=== PATIENT | female | born 1980 | race Caucasian/White ===

== ENCOUNTER 2022-06-17 13:32 | Outpatient (CLI) | payer MEDICAID | END 2022-06-17 23:59 | disposition critical access hospital (66) | LOC: EMS 13:32 | DX: R40.4 Transient alteration of awareness (principal); R40.0 Somnolence; R26.81 Unsteadiness on feet | CPT/HCPCS: A0425; A0427; A0999 ==

== ENCOUNTER 2022-06-17 13:53 | Emergency (ER) | payer MEDICAID ==
[2022-06-17] MEDS ORDERED: NALOXONE 0.4 MG/ML VIAL IVP STA (13:59)
--- NOTE | 2022-06-17 14:01 | ED Physician Documentation ---
History of Present Illness - Stated complaint Stated Complaint: AMS - History obtained from History obtained from: Patient, EMS - Additonal information Additional information: 41-year-old woman brought in from detox. Reportedly was admitted early yesterday. Today after 9 AM she became obtunded and passed out several times. Was not given anything sedating per the MAR today, she did have some meds last night. Reportedly there was no body cavity search on the way into detox. Patient has no complaints other than not wanting to be examined or be cooperative. When asked why she is obtunded, she says because I am coming down. Shortly after arrival here the detox center called us and passed along that while doing a room search, they found needles and drug pills in this patient's room and therefore the presumption is that she overdosed 12 the detox center. After discharge here she is not welcome back, but she can go there to get her stuff. I would presume they will not give the drugs back. PD PAST MEDICAL HISTORY - Past Medical History Cardiovascular: None Respiratory: None Neuro: None Endocrine/Autoimmune: None Psych: Other - Past Surgical History Past Surgical History: No - Allergies Allergies/Adverse Reactions: Allergies Allergy/AdvReac Type Severity Reaction Status Date / Time No Known Drug Allergies Allergy Verified 06/17/22 14:02 - Social History Does the pt smoke?: Yes Smoking Status: Never smoker Does the pt drink ETOH?: No Does the pt have substance abuse?: Yes - Immunizations Immunizations are current?: Yes - POLST Patient has POLST: No PD ED PE NORMAL - Vitals Vital signs reviewed: Yes - General General: Other (Somnolent but arousable) - HEENT HEENT: Other (Refuses to open eyes) - Cardiac Cardiac: RRR, No murmur - Respiratory Respiratory: No respiratory distress, Clear bilaterally - Abdomen Abdomen: Non tender - Neuro Eye Opening: To Voice Motor: Obeys Commands Verbal: Confused GCS Score: 13 Results - Vitals Vitals: Vital Signs - 24 hr 06/17/22 06/17/22 13:59 14:06 Temperature 37.1 C Heart Rate 81 76 Respiratory 17 18 Rate Blood Pressure 132/102 H 122/87 H O2 Saturation 98 96 Oxygen O2 Source Room air - EKG (time done) 1422 EKG releavant findings:: EKG personally interpreted by author of this note. Relevant findings are: Rate: Rate (enter#) (71) Rhythm: NSR [place]: Normal Intervals: Normal [place] QRS: Normal Ischemia: Normal ST segments - Labs Labs: Laboratory Tests 06/17/22 06/17/22 06/17/22 14:08 14:08 14:08 WBC 8.6 RBC 4.51 Hgb 12.8 Hct 39.6 MCV 87.8 MCH 28.4 MCHC 32.3 RDW 13.2 Plt Count 253 MPV 10.1 Neut # (Auto) 6.6 Lymph # (Auto) 1.5 [place] # (Auto) 0.3 Eos # (Auto) 0.1 Baso # (Auto) 0.1 Absolute Nucleated RBC 0.00 Nucleated RBC % 0.0 Sodium 136 Potassium 3.8 Chloride 106 Carbon Dioxide 25 Anion Gap 5.0 L BUN 12 Creatinine 0.6 Estimated GFR (MDRD) 111 Glucose 97 Calcium 8.6 Total Bilirubin 1.0 AST 15 ALT 14 Alkaline Phosphatase 56 Total Protein 6.5 L Albumin 3.7 Globulin 2.8 Albumin/Globulin Ratio 1.3 Lipase 27 TSH 0.29 L Salicylates < 6.0 Acetaminophen < 10 L Ethyl Alcohol < 5.0 - Rads (name of study) CT of the head without contrast is unremarkable Relevant Findings:: Final report received, EMP independent interpretation of test PD Medical Decision Making - ED course ED course: 41-year-old woman presents from a detox center where evidently she overdosed on contraband that had been smuggled in. CBC reviewed and normal. CMP reviewed and normal. Alcohol level negative. She was observed for several hours and cleared her mental status. Departure - Departure Disposition: 01 Home, Self Care Clinical Impression: Accidental drug overdose Condition: Good Record reviewed to determine appropriate education?: Yes Instructions: ED Drug Abuse General Comments: You were seen today because you overdosed on drugs despite being in detox. You are welcome to go back to detox to get your things, but you are not welcome back for further treatment. I encourage you to quit using drugs. Return for new or worsening symptoms. Discharge Date/Time: 06/17/22 16:24
[2022-06-17 14:07] VITALS: BP 122/87
[2022-06-17 14:14] LABS: BASOPHILS # (AUTO) 0.1 10^3/uL (0.0-0.1); BASOPHILS % (AUTO) 0.7 %; EOSINOPHILS # (AUTO) 0.1 10^3/uL (0.0-0.7); EOSINOPHILS % (AUTO) 1.4 %; HCT - HEMATOCRIT 39.6 % (37.0-47.0); HGB - HEMOGLOBIN 12.8 g/dL (12.0-16.0); LYMPHOCYTES # (AUTO) 1.5 10^3/uL (1.5-3.5); LYMPHOCYTES % (AUTO) 17.5 %; MEAN CORPUSCULAR HEMOGLOBIN 28.4 pg (27.0-31.0); MEAN CORPUSCULAR HGB CONC 32.3 g/dL (32.0-36.0); MEAN CORPUSCULAR VOLUME 87.8 fL (81.0-99.0); MEAN PLATELET VOLUME 10.1 fL (7.9-10.8); MONOCYTES # (AUTO) 0.3 10^3/uL (0.0-1.0); MONOCYTES % (AUTO) 3.7 %; NEUTROPHILS # (AUTO) 6.6 10^3/uL (1.5-6.6); NEUTROPHILS % (AUTO) 76.5 %; PLT - PLATELET COUNT 253 10^3/uL (130-450); RED BLOOD COUNT 4.51 10^6/uL (4.20-5.40); RED CELL DISTRIBUTION WIDTH 13.2 % (12.0-15.0); WHITE BLOOD COUNT 8.6 x10^3/uL (4.8-10.8)
--- NOTE | 2022-06-17 14:27 | CT Report ---
PROCEDURE: HEAD WO INDICATIONS: ams TECHNIQUE: Noncontrast 4.5 mm thick angled axial sections acquired from the foramen magnum to the vertex. For r adiation dose reduction, the following was used: automated exposure control, adjustment of mA and/or kV according to patient size. COMPARISON: None. FINDINGS: Image quality: Excellent. CSF spaces: Basal cisterns are patent. No extra-axial fluid collections. Ventricles are normal in size and shape. Brain: No midline shift. No intracranial masses or hemorrhage. Yang-white matter interface is norm al. Skull and face: Calvarium and visualized facial bones are intact, without suspicious lesions. Sinuses: Visualized sinuses and mastoids are clear. IMPRESSION: No acute intracranial abnormality. Reviewed by: Edu Benitez MD on 06/17/2022 2:26 PM PDT Approved by: Edu Benitez MD on 06/17/2022 2:26 PM PDT Station ID: [id number]
[2022-06-17 14:33] LABS: ACETAMINOPHEN < 10 ug/mL (10-30); ALBUMIN 3.7 g/dL (3.2-5.5); ALBUMIN/GLOBULIN RATIO 1.3 (1.0-2.2); ALKALINE PHOSPHATASE 56 IU/L (42-121); ALT ALANINE AMINOTRANSFERASE 14 IU/L (10-60); AST ASPARTATE AMINOTRANSFERASE 15 IU/L (10-42); BUN - BLOOD UREA NITROGEN 12 mg/dL (6-20); CALCIUM 8.6 mg/dL (8.5-10.3); CARBON DIOXIDE - CO2 25 mmol/L (21-32); CHLORIDE 106 mmol/L (101-111); CREATININE 0.6 mg/dL (0.4-1.0); ETOH - ETHANOL < 5.0 mg/dL; GFR - MDRD 111 (>89); GLUCOSE 97 mg/dL (70-100); LIPASE 27 U/L (22-51); POTASSIUM 3.8 mmol/L (3.5-5.0); SALICYLATE < 6.0 mg/dL; SODIUM 136 mmol/L (135-145); TOTAL PROTEIN 6.5 g/dL (6.7-8.2)
== END 2022-06-17 16:24 | disposition home or self-care (01) ==
LOC: EDUNIT# → ED 13:53
DX: T50.901A Poisoning by unspecified drugs, medicaments and biological substances, accidental (unintentional), initial encounter (principal)
CPT/HCPCS: 36415; 80053; 80307; 80320; 80329; 83690; 84443; 85025; 93005; 99283; 99284